=== PATIENT | female | born 2000 | race Caucasian/White ===

== ENCOUNTER 2019-11-07 02:14 | Emergency (ER) | payer BC ==
--- NOTE | 2019-11-07 04:12 | EDM.PDOC ---
ED HPI GENERAL MEDICAL PROBLEM - General Chief Complaint: Drug or Alcohol Abuse Stated Complaint: HEAD INJURY ALCOHOL Time Seen by Provider: 11/07/19 02:24 Source of Information: Reports: Patient, EMS, RN Notes Reviewed - History of Present Illness INITIAL COMMENTS - FREE TEXT/NARRATIVE: 19 yr old female has been brought here by EMS after she fell, hit her L forehead on a stove. She is very intoxicated. Had been out with friends drinking alcohol. The fall occured after going home. A friend states she lost her balance, fell against a stove. No LOC. Has a hematoma L forehead. Mild Fletcher on arrival to ED. She did feel nauseated but there has been no vomiting. No neck, back pain or other pain or injury. Left Head Pain Score (Numeric/FACES): 3 - Related Data Allergies Allergy/AdvReac Type Severity Reaction Status Date / Time No Known Allergies Allergy Verified 11/07/19 02:26 Home Meds: Home Meds . [Unable to Verify Home Med List] 11/07/19 [History] Past Medical History - Past Health History Medical/Surgical History: Denies Medical/Surgical History Psychiatric History: Reports: Depression Social & Family History - Family History Family Medical History: Noncontributory - Caffeine Use Caffeine Use: Reports: Coffee, Energy Drinks, Soda, Tea - Alcohol Use Days Per Week of Alcohol Use: 1 Number of Drinks Per Day: 4 Total Drinks Per Week: 4 - Recreational Drug Use Recreational Drug Use: No ED ROS GENERAL - Review of Systems Review Of Systems: See Below Constitutional: Reports: No Symptoms HEENT: Denies: Ear Discharge, Vision Change Respiratory: Denies: Shortness of Breath, Pleuritic Chest Pain Cardiovascular: Denies: Chest Pain GI/Abdominal: Denies: Abdominal Pain, Vomiting Musculoskeletal: Denies: Joint Pain Skin: Reports: No Symptoms Neurological: Reports: Headache (very mild). Denies: Trouble Speaking, Weakness (no focal weakness) ED EXAM, HEAD INJURY - Physical Exam Exam: See Below General Appearance: Alert Head: Facial Swelling (L forehead swelling, no bruising at this time). No: Facial Ecchymosis, Facial Lacerations, Facial Tenderness Eyes: Bilateral Eye: PERRL Ears: Normal External Exam Nose: Normal Inspection Throat/Mouth: Normal Inspection Neck: Non-Tender, Full Range of Motion Respiratory: No Respiratory Distress, Lungs Clear, Normal Breath Sounds Cardiovascular: Regular Rate, Rhythm Extremities: Normal Inspection, Normal Range of Motion Neurologic: No Motor/Sensory Deficits, Other (slurred speech compatable with moderate to severe alcohol intoxication) Course - Vital Signs Last Recorded V/S: Last Vital Signs Temp 97.2 F 11/07/19 02:21 Pulse 114 H 11/07/19 02:21 Resp 12 11/07/19 02:21 BP 112/66 11/07/19 02:21 Pulse Ox 97 11/07/19 02:21 Departure - Departure Time of Disposition: 03:00 Disposition: Home, Self-Care 01 Condition: Fair Clinical Impression: Alcohol intoxication Qualifiers: Complication of substance-induced condition: uncomplicated Qualified Code(s): F10.920 - Alcohol use, unspecified with intoxication, uncomplicated Fall Qualifiers: Encounter type: initial encounter Qualified Code(s): W19.XXXA - Unspecified fall, initial encounter Forehead contusion Qualifiers: Encounter type: initial encounter Qualified Code(s): S00.83XA - Contusion of other part of head, initial encounter - Discharge Information Instructions: Alcohol Intoxication, [id number], Contusion, [id number] Referrals: PCP,None [Primary Care Provider] - Additional Instructions: Rest, avoid further alcohol. Drink plenty of water today to allow for rehydration. Ice packs and elevation to area of swelling. Follow up clinic as needed. Return to ED as needed. Sepsis Event Note - Evaluation Sepsis Screening Result: No Definite Risk - Focused Exam Vital Signs: Vital Signs Temp Pulse Resp BP Pulse Ox 11/07/19 02:21 97.2 F 114 H 12 112/66 97 Date Exam was Performed: 11/07/19 Time Exam was Performed: 07:09
== END 2019-11-07 04:28 | disposition home or self-care (01) ==
LOC: JD.ED 02:14
DX: S00.83XA Contusion of other part of head, initial encounter (principal); F10.920 Alcohol use, unspecified with intoxication, uncomplicated; W22.8XXA Striking against or struck by other objects, initial encounter; Y92.009 Unspecified place in unspecified non-institutional (private) residence as the place of occurrence of the external cause
CPT/HCPCS: 99283